=== PATIENT | female | born 1965 | race American Indian/Alaskan Native ===

== ENCOUNTER 2016-07-29 09:16 | Inpatient (IN) | payer OTHER ==
[2016-07-29 09:33] VITALS: BMI 31.3
[2016-07-29] MEDS ORDERED: Lactated Ringer's 1,000 ML IV ONE ×3 (10:00→15:15)
[2016-07-29] MEDS ORDERED: Midazolam 2 MG/2 ML VIAL ONE (11:20)
[2016-07-29] MEDS ORDERED: ePHEDrine 50 mg/ml Inj ONE ×2 (11:20→12:41)
[2016-07-29] MEDS ORDERED: Propofol 10 mg/ml Inj (20 ML) ONE (11:20)
[2016-07-29] MEDS ORDERED: Rocuronium 10 mg/ml (5 ml) ONE ×2 (11:21→13:29)
[2016-07-29] MEDS ORDERED: Succinylcholine 200 mg/10 ml Inj IV ONE (11:21)
[2016-07-29] MEDS ORDERED: Bupivacaine 0.5% Inj(30mL) ONE (11:22)
[2016-07-29 12:00] LABS: HEMATOCRIT 35.4 % (34.0-47.0); MEAN CELL VOLUME 79.6 fl (81.0-99.0); MEAN CORPUSCULAR HEMOGLOBIN 24.6 pg (27.0-31.0); MEAN CORPUSCULAR HGB CONC 30.9 g/dL (33.0-37.0); RED CELL DISTRIBUTION WIDTH 19.4 % (11.5-14.5); WHITE BLOOD COUNT 5.7 K/uL (4.8-10.8)
[2016-07-29] MEDS ORDERED: Sodium Chloride 0.9% 1,000 ML IV ONE (12:10)
[2016-07-29] MEDS ORDERED: Sodium Chloride 0.9% 200 ML IV ONE ×2 (12:15→14:15)
[2016-07-29] MEDS ORDERED: Neostigmine Methylsulfate 2 MG/2 ML ML IV ONE (12:17)
[2016-07-29] MEDS ORDERED: Neostigmine Methylsulfate 3mg/3ml Syringe IV ONE (12:17)
[2016-07-29] MEDS ORDERED: Vasopressin 20 Units/ml Inj IV ONE (13:10)
[2016-07-29] MEDS ORDERED: Dexamethasone 4 mg/1 ml ONE (13:11)
[2016-07-29] MEDS ORDERED: Phenylephrine 10 mg/ml Inj ONE (15:53)
[2016-07-29] MEDS ORDERED: Oxycodone/Acetaminophen 5/325 mg Tab PO PRN ×2 (16:33→17:44)
[2016-07-29] MEDS: HYDROmorphone 0.5 mg/0.5 ml ISec IVP PRN ×5 (16:36→19:24)
[2016-07-29] MEDS ORDERED: Lactated Ringer's 1,000 ML IV SCH (16:45)
[2016-07-29] MEDS: Lactated Ringer's 1,000 ML IV SCH ×2 (20:08→21:40)
[2016-07-30] MEDS: Lactated Ringer's 1,000 ML IV SCH ×2 (00:32→05:28)
[2016-07-30 10:37] LABS: BASO % 0.2 % (0.0-2.0); EOS % 0.2 % (0.0-4.0); HEMATOCRIT 27.6 % (34.0-47.0); LYMPH # 2.4 K/uL (1.0-4.3); LYMPH % 23.1 % (20.0-40.0); MEAN CELL VOLUME 79.5 fl (81.0-99.0); MEAN CORPUSCULAR HEMOGLOBIN 24.9 pg (27.0-31.0); MEAN CORPUSCULAR HGB CONC 31.3 g/dL (33.0-37.0); MONO % 9.4 % (0.0-10.0); NEUT % 67.1 % (50.0-75.0); NRBC % 0.1 % (0.0-0.0); RED CELL DISTRIBUTION WIDTH 19.1 % (11.5-14.5); WHITE BLOOD COUNT 10.5 K/uL (4.8-10.8)
[2016-07-30] MEDS ORDERED: Apap-Butalbital-Caffeine 325-50-40mg Tab PO PRN (13:31)
[2016-07-30 17:52] VITALS: BP 98/65; PULSE 80; RESP 18; TEMP 98.5; O2SAT 97
--- NOTE | 2016-08-03 08:11 | OP ---
PROCEDURE DATE: 08/02/2016 PREOPERATIVE DIAGNOSES: Pelvic pain, abnormal uterine bleeding, symptomatic uterine fibroid. POSTOPERATIVE DIAGNOSES: Pelvic pain, abnormal uterine bleeding, symptomatic uterine fibroid. PROCEDURE PERFORMED: Cystoscopy with placement of stents and injection of dye, hysteroscopy, diagnostic and laparoscopy, robotic, da carmen multiple myomectomy. SURGEON: Kaleb Fuentes M.D. CARD SCRAPER: Jaya Tolentino M.D. ANESTHESIA: General endotracheal. ESTIMATED BLOOD LOSS: 200 mL COMPLICATIONS: None. SPECIMEN: To pathology multiple fibroids, the largest one being 67 cm and the smallest one being 2 cm. INDICATION FOR THE PROCEDURE: The patient is a 51-year-old with a history of pelvic pain and abnormal bleeding, who was worked up and workup revealed the presence of multiple uterine fibroids, 2 of which were in the submucosal area. The patient did not want a hysterectomy and so she was counseled with regards to risks and benefits to a myomectomy. The patient understood the procedure would be more difficult given her history of a prior abdominoplasty and nevertheless, she decided to move forward with the procedure given the fact that the patient had pelvic pain and we could not rule out endometriosis and the plan was to use fluorescent robotic surgery as well to identify the endometriosis and potential excision. Because of that, prior to the procedure a fluorescent dye was injected in both ureters. DESCRIPTION OF PROCEDURE: After adequate anesthesia was obtained, the patient was placed in dorsal lithotomy position. She was prepped and draped, the surgeon gowned and gloved. At this point, the attention was in the vaginal area where a cystoscope was inserted into the bladder and IC-Green dye was injected bilaterally in each ureter. The bladder, otherwise, appeared to be normal. A diagnostic hysteroscopy was performed revealing an enlarged cavity, but with no features of hyperplastic changes. At this point, the uterine manipulator was placed in the uterus and attention was on the abdomen where an incision was made 3 fingerbreadths above the patient's umbilicus which had been repositioned due to the patient's prior abdominoplasty. A cutdown incision was made all the way to the fascia and the fascia was incised and with an open technique, the trocar was inserted. The pelvis was visualized at this point, after insufflation revealing very enlarged uterus distorted by the presence of multiple fibroids. The MRI was used as a guideline throughout the procedure in order to identify each individual fibroid. At this point, 3 additional ports were placed; right outer quadrant, right mid quadrant and left mid quadrant and left outer quadrant. At this point, the da Carmen robot was docked and the procedure was commenced. All the fibroids were extruded through 2 incisions, one posterior and fundal which was a longitudinal incision through which in a [id number] fashion the 2 large fibroids were extruded. This was done without great difficulty and with extreme care not to damage or enter the endometrial cavity, which was not entered. At this point, using 2-0 locking suture, the defect was closed in layers. At this point, attention was on the posterior lower part of the uterus where an additional fibroid was identified pointing and incision was made again horizontally and through this incision 3 more fibroids were excised without any problems. One of the fibroids was deeper in the submucosal area. This was done with minimal bleeding and once the fibers were taken out, again, the incision was closed with the self-locking sutures in 2-0 size. At this point, the smaller fibroid anterior was also excised. It was not seen in the subserosal area, but the defect in the serosa was also closed with 2-0 suture. At this point, it was checked for hemostasis and appeared to be excellent. All the blood was removed and the pelvis was irrigated. An Endobag was inserted through the main port and at this point the fibroid was taken up to the incision, the incision was enlarged and all fibroids were removed through this incision by hand morcellation inside the bag. Once this was done, the larger incision was closed with a running suture of 0 PDS and the skin was closed with 2 layers of 4-0 Monocryl. The other skin incision was reapproximated with 4-[address] Jaya Tolentino was present throughout the procedure. His role was essential for this complex procedure, in both allowing for visualization, retraction, suction and allowing for this procedure to be executed. He was present throughout the procedure. At the end of the procedure, all tapes and instrument counts were correct. The patient was taken to recovery room in excellent condition. Kaleb Fuentes MD cc: [id number] TT: 08/03/2016 07:34:46 tn MTDCarlos Enrique
== END 2016-07-30 18:23 | disposition home or self-care (01) | DRG 743 ==
LOC: H.OPSURG 09:16 → H.MEDSURG1 16:29
PROVIDERS: ADMIT Obstetrics & Gynecology Reproductive Endocrinology; ATTEND Obstetrics & Gynecology Reproductive Endocrinology
PROC: 0TJB8ZZ Inspection of Bladder, Via Natural or Artificial Opening Endoscopic (ICD-10-PCS; 2016-07-29)
PROC: 0UB94ZZ Excision of Uterus, Percutaneous Endoscopic Approach (ICD-10-PCS; principal; 2016-07-29 11:15)
PROC: 8E0W4CZ Robotic Assisted Procedure of Trunk Region, Percutaneous Endoscopic Approach (ICD-10-PCS; 2016-07-29 11:15)
DX: D25.0 Submucous leiomyoma of uterus (principal); N93.9 Abnormal uterine and vaginal bleeding, unspecified